=== PATIENT | female | born 1980 | race Caucasian/White ===

== ENCOUNTER 2017-03-28 08:26 | Emergency (ER) | payer BC ==
--- NOTE | ~2017-03-28 | US6 ---
[facility] A Service [facility] RADIOLOGY TEXT RESULTS PATIENT: SARWAT HERNÁNDEZ LOCATION: SED : 80 UNIT #: [id number] AGE: [address]: Sulema Bryant MD SEX: F ORDER DR: [id number] [address] [address] [id number] E MR#: [id number] Acc #: [id number] NAME: SARWAT HERNÁNDEZ : 1980 SEX: F STUDY DATE/TIME: 03/28/2017 10:56 UNIT: SED ROOM: STUDY DESCRIPTION: US Abdominal Limited Attending Physician: Sulema Bryant M.D. Ordering Physician: Sulema Bryant M.D. Primary Care Physician: No Primary Care Physician MEDICAL IMAGING REPORT This report is preliminary unless electronic signature is present. EXAM Right upper quadrant ultrasound INDICATIONS Right upper quadrant pain for 1 week. TECHNIQUE Grayscale imaging of the right upper quadrant structures was performed. COMPARISON There are no comparison studies available. FINDINGS The pancreas is obscured, due to overlying bowel gas, and cannot adequately be evaluated. There is increased echogenicity of the liver with increased beam attenuation, however, suggesting fatty infiltration. Gallbladder is contracted. No evidence for gallstones. The upper normal common bile duct. Right kidney within normal limits. IMPRESSION 1. Fatty infiltration of the liver. 2. No evidence of acute cholecystitis. Dictated by... Robles Larios M.D. THIS IS AN ELECTRONICALLY VERIFIED REPORT Robles Larios M.D. at 03/28/2017 5:04 PM RADHA/frank TD: 03/28/2017 13:17 [facility] A Service [facility] RADIOLOGY TEXT RESULTS PATIENT: SARWAT HERNÁNDEZ LOCATION: SED : 80 UNIT #: [id number] AGE: [address]: Sulema Bryant MD SEX: F ORDER DR: JOB #: [id number] MEDICAL IMAGING REPORT Page 1 of 1
[~2017-03-28 08:26] MED LIST: ALBUTEROL17 G1 IH; PREDNISONE10 MG PO; VIBRAMYCIN100 M1 PO
[2017-03-28] MEDS ORDERED: ALBUTEROL17 GM INH (08:33)
[2017-03-28 09:16] LABS: BASOPHIL# 0.1 X10e3 (0-0.3); EOSINOPHIL# 0.2 X10e3 (0-0.7); EOSINOPHIL% 4.3 % (0.0-7.0); HEMATOCRIT 41.1 % (35.0-45.0); HEMOGLOBIN 13.3 gm/dL (12.0-16.0); LYMPHOCYTE# 1.3 X10e3 (1.0-3.5); LYMPHOCYTE% 24.2 % (17.0-45.0); MEAN CELL VOLUME 81.3 FL (83-96); MEAN CORPUSCULAR HEMOGLOBIN 26.3 PG (28-34); MEAN CORPUSCULAR HGB CONC 32.3 g/dL (30-36); MEAN PLATELET VOLUME 8.4 FL (6.5-11.5); MONOCYTE# 0.3 X10e3 (0-1.0); MONOCYTE% 5.9 % (3.0-12.0); NEUTROPHIL# 3.5 X10e3 (1.5-7.1); NEUTROPHIL% 64.6 % (40-75); PLATELET COUNT 242 X10e3 (140-420); RED BLOOD COUNT 5.06 X10e (3.90-5.30); RED CELL DISTRIBUTION WIDTH 15.3 % (11.0-15.5); WHITE BLOOD COUNT 5.4 X10e3 (4.0-10.5)
[2017-03-28 09:40] LABS: URINE SOURCE CLEAN CATCH
[2017-03-28 09:40] LABS: DIFF IND NO
[2017-03-28 09:44] LABS: URINE APPEARANCE CLEAR; URINE BILIRUBIN NEG (NEG); URINE BLOOD NEG (NEG); URINE COLOR YELLOW; URINE GLUCOSE NEG (NORM); URINE KETONE NEG (NEG); URINE LEUKOCYTE ESTERASE NEG (NEG); URINE NITRATE NEG (NEG); URINE PH 6.5 (5-8); URINE PROTEIN NEG (NEG); URINE SPECIFIC GRAVITY 1.015 (1.003-1.035); URINE UROBILINOGEN 0.2 MG/DL (NORM)
[2017-03-28 09:51] LABS: ALBUMIN SERUM 4.1 g/dL (3.5-5.0); ALKALINE PHOSPHATASE 64 U/L (32-92); ALT (SGPT) 27 U/L (10-40); AMYLASE 16 U/L (0-46); AST (SGOT) 24 U/L (10-42); BILIRUBIN,TOTAL 0.4 mg/dL (0.2-2.0); BLOOD UREA NITROGEN 10 mg/dL (9-23); CALCIUM SERUM 9.3 mg/dL (8.4-10.2); CARBON DIOXIDE 26 mmol/L (22-31); CHLORIDE 102 mmol/L (100-111); CREATININE SERUM 0.8 mg/dL (0.6-1.4); GLOM FILT RATE Estimated 94.3 mL/min (>60); GLUCOSE FASTING 122 mg/dL (70-110); LIPASE 24 U/L (22-51); PROTEIN TOTAL SERUM 7.3 g/dL (6.0-8.3); SODIUM 133 mmol/L (135-145)
[2017-03-28 09:53] LABS: MICRO INDICATED? NO
[2017-03-28 09:55] LABS: BILIRUBIN, DIRECT <0.1 mg/dL (0.0-0.2); BILIRUBIN,INDIRECT 0.3 mg/dL (0.0-0.9)
[2017-03-28] MEDS ORDERED: BENTYL10 M1 PO (12:38)
[2017-03-28] MEDS ORDERED: ZOFRAN ODT4 MG PO (12:38)
[2017-03-28] MEDS ORDERED: NEXIUM20 MG PO (12:39)
== END 2017-03-28 12:39 | disposition home or self-care (01) ==
LOC: SED 08:26
PROVIDERS: Emergency Medicine
DX: R10.11 Right upper quadrant pain (principal); J45.909 Unspecified asthma, uncomplicated; N83.209 Unspecified ovarian cyst, unspecified side; Z79.899 Other long term (current) drug therapy
CPT/HCPCS: 36415; 76705; 80048; 80076; 81003; 82150; 83690; 84703; 85025; 96361; 96374; 96375; 99284; J2405